=== PATIENT | female | born 1970 | race Caucasian/White ===

== ENCOUNTER → 2024-02-03 09:05 | Outpatient (REF) | payer OTHER, SELFPAY | LOC: HWWDC 09:05 | PROVIDERS: ATTENDING PHYSICIAN Nurse Practitioner Adult Health | DX: Z12.31 Encounter for screening mammogram for malignant neoplasm of breast (principal) | CPT/HCPCS: 77063; 77067 ==

== ENCOUNTER → 2024-05-04 15:45 | Outpatient (REF) | payer OTHER, SELFPAY | LOC: RCS 15:45 | PROVIDERS: ATTENDING PHYSICIAN Specialist; FAMILY PHYSICIAN Nurse Practitioner Adult Health | DX: Z01.818 Encounter for other preprocedural examination (principal) | CPT/HCPCS: 93005 ==

== ENCOUNTER → 2024-05-12 13:57 | Outpatient (REF) | payer OTHER, SELFPAY | LOC: HWRAD 13:57 | PROVIDERS: ATTENDING PHYSICIAN Physician Assistant; FAMILY PHYSICIAN Nurse Practitioner Adult Health | DX: E11.641 Type 2 diabetes mellitus with hypoglycemia with coma (principal); R73.9 Hyperglycemia, unspecified | CPT/HCPCS: 74170; Q9967 ==

== ENCOUNTER → 2024-06-14 14:50 | Outpatient (REF) | payer OTHER, SELFPAY | LOC: RCS 14:50 | PROVIDERS: ATTENDING PHYSICIAN Nurse Practitioner Adult Health | DX: I10 Essential (primary) hypertension (principal); I51.7 Cardiomegaly | CPT/HCPCS: 93306 ==

== ENCOUNTER 2025-07-03 06:06 | Day surgery (SDC) | payer OTHER, SELFPAY ==
[2025-06-28 10:12] LABS: Hematocrit 40.2 % (37.0-47.0); Hemoglobin 14.0 g/dL (12.0-16.0); Mean Corp Hgb Conc. 34.8 g/dL (33.0-37.0); Mean Corpuscular Volume 81.7 fL (81.0-99.0); Platelet Count 281 10^3/uL (130-400); Red Cell Dist. Width 12.5 % (11.5-14.5)
[2025-06-28 10:40] LABS: Blood Urea Nitrogen 20 mg/dl (7-17); Calcium 9.3 mg/dl (8.4-10.2); Carbon Dioxide 29 mmol/L (22-30); Chloride 106 mmol/L (98-107); Glucose 100 mg/dl (70-99); Potassium 3.9 mmol/L (3.5-5.1); Sodium 141 mmol/L (135-145); eGFR > 60.00
[2025-06-28 14:19] VITALS: BMI 28.8
[2025-07-03] VITALS (13 sets, daily range): BP systolic 111–144; BP diastolic 56–80; BMI 28.8; BMI 30.9
[2025-07-03] MEDS: NORMOSOL-R/PLASMALYTE-A 1000 IV (12:21)
[2025-07-03 12:24] LABS: Glucose - Point of Care 96 mg/dl (70-99)
[2025-07-03] MEDS: TYLENOL 1000 MG PO (12:30)
[2025-07-03] MEDS: CELEBREX 200 MG PO (12:31)
[2025-07-03 16:57] LABS: Glucose - Point of Care 130 mg/dl (70-99)
[2025-07-03] MEDS: DILAUDID 0.5 MG IV ×2 (17:26→17:41)
[2025-07-03 17:31] LABS: Glucose - Point of Care 155 mg/dl (70-99)
[2025-07-03] MEDS: DILAUDID 0.25 MG IV ×2 (17:56→19:17)
--- NOTE | 2025-07-03 18:53 | HPS.HSE ---
Addendum entered and electronically signed by Lionel Duffy MD 07/03/25 21:11:
This is an addendum to the H&P written by Bindu Zayas on 07/03/2025. �Patient seen and examined independently with [facility].
54-year-old female past medical history of hypertension, hyperlipidemia, type 2 diabetes, depression, insomnia, underwent right osteotomy of the calcaneus and tarsal bone for tibial tendon dysfunction.
Nonweightbearing on left lower extremity. �PT OT. �Pain control with Tylenol, oxycodone, Dilaudid.
Hold Lantus tonight. �Insulin sliding scale.
Original Note:
Family Physician
-
Family Physician: Avelina Miller
Chief Complaint
-
Right foot posterior tibial tendon dysfunction
History of Present Illness
54-year-old female status post right osteotomy calcaneus and tarsal bone due to posterior tibial tendon dysfunction currently in the PACU is awake alert oriented x 3. She did have nerve block to her right ankle which is currently wearing off she is
having some pain to her ankle and toes. She is in a posterior OCL splint toes are pink warm with good sensation +2 cap refill. Patient denies fever, chills, chest pain, palpitations, cough, shortness breath, abdominal pain, nausea, vomiting,
diarrhea, urinary symptoms.
She has past medical history right posterior tibial tendon dysfunction, HLD, HTN, depression, DM 2, insomnia.
Medical History
Past Medical History
Past Medical History: Reports Other
Additional Past Medical History:
Hypertension
Hyperlipidemia
DM 2
Depression
Insomnia
Posterior tibial tendon dysfunction right foot
Past Surgical History: Reports Other
Additional Past Surgical History:
section x 3
D&C
Gastric sleeve 2015
Left knee meniscus repair April 2024
Social History
Tobacco: Non-smoker
Alcohol: None
Drug: None
Personal:
Living: With Family (With )
Employment: Employed
Family History
Family History: Not pertinent
Allergies / Home Medications
Allergies reflects when Allergies were last updated in [facility].
Home Medications with original date entered in [facility]
Allergy/Medication List:
Allergies
Allergy/AdvReac Type Severity Reaction Status Date / Time
clarithromycin Allergy Patient Verified 07/03/25 12:18
Denies
erythromycin base Allergy Patient Verified 07/03/25 12:18
Denies
Home Medications
amlodipine 10 mg tablet 10 mg PO HS 06/26/25
bupropion HCl 150 mg 24 hr tablet, extended release (Wellbutrin XL) 150 mg PO HS 06/26/25
bupropion HCl 75 mg tablet 75 mg PO HS 06/26/25
chlorthalidone 25 mg tablet 25 mg PO DAILY 06/26/25
insulin glargine 100 unit/mL subcutaneous solution (Lantus U-100 Insulin) 15 unit SC HS 06/26/25
rosuvastatin 40 mg tablet (Crestor) 40 mg PO DAILY 06/26/25
tirzepatide 5 mg/0.5 mL subcutaneous pen injector (Mounjaro) 5 mg SC MO 06/26/25
trazodone 50 mg tablet 50 - 100 mg PO HS PRN insomnia 06/26/25
Review of Systems
-
History Source: Patient and Family ( at bedside)
A 12 point ROS was completed and negative except as noted: Yes
Constitutional: Denies Fever or Chills
EENT: Denies Sore Throat
Respiratory: Denies Cough or Trouble Breathing
Cardiac: Denies Chest Pain, Diaphoresis or Palpitations
Abdomen/GI: Denies Abdominal Pain, Nausea, Vomiting or Diarrhea
: Denies Dysuria, Frequency, Flank Pain or Incontinence
Musculoskeletal: Reports Joint Pain (Right ankle postop) and Other (Posterior OCL in place with distal dorsal foot and toes exposed pink, warm, sensation intact, +2 cap refill)
Skin: Denies Itching or Rash
Neurological: Denies Dizzy or Headache
Endocrine: Reports No Symptoms
Hematologic/Lymphatic: Reports No Symptoms
Psych: Reports Calm
Physical Exam
Vital Signs
Vital Signs
Temp Pulse Resp BP Pulse Ox
97.1 F 97 14 116/56 96
07/03/25 17:17 07/03/25 18:45 07/03/25 18:45 07/03/25 18:45 07/03/25 18:45
Physical Exam
General: Pain; No Fever or Chills
HEENT: NormoCephalic, Anicteric, Moist mucous membranes, PERRLA, [place] Conjunctivae and No Ptosis
Respiratory: Clear; No Wheezes, Rales or Rhonchi
Cardiac: S1/S2 and Regular Rhythm; No Murmur, Rub, Gallop or Peripheral Edema
GI: Soft, Non Tender, Non Distended and Normal Bowel Sounds
Rectal: Deferred by Provider
Genito-urinary: Deferred by me
Musculoskeletal: No Clubbing, No Cyanosis, No Edema and Other (Posterior OCL in place with distal dorsal foot and toes exposed pink, warm, sensation intact, +2 cap refill)
Skin: Warm and Dry; No Rash or Jaundice
Neuro: AO x 3, Nonfocal/grossly intact, Cranial Nerves Intact and No Sensory Deficits; No Slurred Speech, Facial Droop, Tremors or Sedated
Psych: Calm
Laboratory Results
-
06/28/25 08:58
06/28/25 08:58
Data Reviewed
-
Lab Data: Labs Reviewed by me
Impression/Plan
-
Impression/plan:
Admit to MedSurg postop
Postop right osteotomy calcaneus and tarsal bone due to posterior tibial tendon dysfunction
- Patient being followed by Dr. Jama
- Tylenol, oxycodone, IV Dilaudid
- IV Zofran as needed pain
- IV NSS
-Weightbearing per podiatry Dr. Jama
- Consult PT/OT/case management
#DM2
Accu-Cheks with SSI low, check HgbA1c
- Hold Mounjaro, Lantus 15 units at bedtime
#HTN
BP 123/68
-Continue amlodipine 10 mg at bedtime
#HLD
Continue Crestor 40 mg daily
Depression
Continue Wellbutrin at bedtime
Insomnia
Continue trazodone 50 mg at bedtime
DVT prophylaxis
SCDs to left leg
Full code
[2025-07-03 19:56] LABS: Glucose - Point of Care 134 mg/dl (70-99)
[2025-07-03] MEDS: NORMOSOL-R/PLASMALYTE-A IV (20:33)
--- NOTE | 2025-07-03 21:06 | W.PN.UPDATE ---
Update Note
Progress Note Update
54 F s/p Right flat foot reconstruction (oliver, kenneth, wilfrido, edwin, chris). Patient having pain after peripheral nerve block 'wore off' otherwise, NAD.
- strict NWB RLE
- PT/OT
- ancef 2g 24 hrs post op, not a barrier to discharge
- resume diet
- postop analgesia
- will reassess on AM rounds
[2025-07-03] MEDS: DILAUDID 1 MG IV (21:10)
[2025-07-03] MEDS: WELLBUTRIN REGULAR RELEASE 75 MG PO (21:21)
[2025-07-03] MEDS: WELLBUTRIN XL (24 hour extended release) 150 MG PO (21:21)
[2025-07-03] MEDS: NORVASC 10 MG PO (21:23)
[2025-07-03] MEDS: TYLENOL 650 MG PO (21:24)
--- NOTE | 2025-07-03 22:00 | PTCARENOTE ---
Rec'd patient from PACU. stable vitals. Moderate pain to Right lower leg. Right leg dressing CDI. POC reviewed with patient .
[2025-07-03] MEDS: ANCEF 10 IV (22:37)
[2025-07-04 00:10] LABS: Glucose - Point of Care 251 mg/dl (70-99)
[2025-07-04] MEDS: NORMOSOL-R/PLASMALYTE-A 1000 IV (00:34)
[2025-07-04] MEDS: ROXICODONE 5 MG PO ×3 (00:45→09:12)
[2025-07-04 03:00] VITALS: BP 123/68
[2025-07-04] MEDS: TYLENOL 650 MG PO (05:00)
[2025-07-04] MEDS: ANCEF 10 IV ×2 (05:01→14:25)
[2025-07-04 06:50] LABS: Hematocrit 36.5 % (37.0-47.0); Hemoglobin 12.9 g/dL (12.0-16.0); Mean Corp Hgb Conc. 35.3 g/dL (33.0-37.0); Mean Corpuscular Volume 83.5 fL (81.0-99.0); Nucleated Red Blood Cells % 0 %; Platelet Count 274 10^3/uL (130-400); Red Cell Dist. Width 12.3 % (11.5-14.5)
[2025-07-04 07:12] LABS: ALT (SGPT) 18 U/L (0-35); AST (SGOT) 19 U/L (14-36); Albumin 3.8 g/dl (3.5-5.0); Alkaline Phosphatase 73 U/L (38-126); Blood Urea Nitrogen 19 mg/dl (7-17); Calcium 8.8 mg/dl (8.4-10.2); Carbon Dioxide 26 mmol/L (22-30); Chloride 107 mmol/L (98-107); Estimated Creatinine Clearance 108 ml/min; Glucose 103 mg/dl (70-99); Potassium 3.7 mmol/L (3.5-5.1); Sodium 139 mmol/L (135-145); Total Protein 6.0 g/dl (6.3-8.2); eGFR > 60.00
[2025-07-04 07:55] VITALS: BP 119/66
[2025-07-04 08:03] LABS: Glucose - Point of Care 136 mg/dl (70-99)
--- NOTE | 2025-07-04 08:37 | W.PN.UPDATE ---
Update Note
Progress Note Update
54 F s/p Right flat foot reconstruction (oliver, kenneth, wilfrido, edwin, chris). Patient doing well this AM, feeling more ready to go home. CFT wnl, sensation intact to pedal distributions, gross motor function intact. calves soft supple
nontender to touch.
- strict NWB RLE
- PT/OT
- ancef 2g 24 hrs post op, not a barrier to discharge
- resume diet
- postop analgesia
- patient may follow up in office for routine post op care.
[2025-07-04] MEDS: CRESTOR 40 MG PO (09:05)
--- NOTE | 2025-07-04 09:07 | W.PN.HOSP.TC ---
Today's Communication/Plan
-
Discharge today
Assessment / Plan
Assessment / Plan
Physical Exam
General: Not in acute distress
HEENT: Normocephalic, Moist mucous membranes
Respiratory: Clear to Auscultation Bilaterally
Cardiac: S1/S2 and Regular Rhythm
GI: Soft, Non Tender, Non Distended and Normal Bowel Sounds
Musculoskeletal: No Cyanosis, RLE covered in dressing and JORGE wrap.
Skin: Warm and Dry
Neuro: AO x 3, Nonfocal/grossly intact, Cranial Nerves Intact and No Sensory Deficits
Psych: Calm
Assessment/Plan
54-year-old female with past medical history of hypertension, hyperlipidemia, type 2 diabetes, depression, insomnia, underwent right osteotomy of the calcaneus and tarsal bone for tibial tendon dysfunction. Nonweightbearing on left lower extremity.
PT OT. Pain control with Tylenol, oxycodone, Dilaudid.
Postop right osteotomy calcaneus and tarsal bone due to posterior tibial tendon dysfunction (right flat foot reconstruction (gastroc, kouts, anna, cotton, kinder))
- Patient being followed by Dr. Jama
- Strict NWB of the RLE
- Consult PT/OT/case management
- Follow-up outpatient with Dr. Farfan and Dr. Jama
Type 2 Diabetes Mellitus
- Patient has not needed Sliding Scale Insulin here
- HgbA1c is 5.3%
- Take reduced Lantus dose at bedtime, e.g. 4 units and then increase as necessary
- Talk with outpatient primary care provider regarding when to resume Mounjaro
Hypertension
-Continue amlodipine 10 mg at bedtime
Hyperlipidemia
-Continue Crestor 40 mg daily
Depression
-Continue Wellbutrin at bedtime
Insomnia
-Continue trazodone 50 mg at bedtime
DVT prophylaxis
SCDs to left leg. Lovenox.
Full code
More than 30 minutes spent in discharge including
Final examination of the patient
Summarizing hospital stay
Instructions for continuing care to all relevant caregivers
Preparation of discharge records, prescriptions, and referral forms
Total time spent (in minutes): 41
Anticipated Discharge: Today
Subjective/Interval History
-
Date of Service: July 04, 2025
Patient was seen and examined. She denied any complaints. She did have some nausea/vomiting earlier which resolved.
Objective Data
-
Labs:
Laboratory Results
07/04/25
05:53
WBC 12.5 H
Hgb 12.9
Hct 36.5 L
Plt Count 274
Sodium 139
Potassium 3.7
Chloride 107
Carbon Dioxide 26
BUN 19 H
Creatinine 0.6
Glucose 103 H
Calcium 8.8
Total Bilirubin 0.4
AST 19
ALT 18
Alkaline Phosphatase 73
Vital Signs:
Vital Signs
Temp Pulse Resp BP Pulse Ox
98.0 F 85 18 119/66 98
07/04/25 07:55 07/04/25 07:55 07/04/25 07:55 07/04/25 07:55 07/04/25 07:55
I&O
07/03/25 07/04/25 07/05/25
06:59 06:59 06:59
Intake Total 880 / 880
Balance 880 / 880
--- NOTE | 2025-07-04 09:45 | CM ---
Cm reviewed medical records. Patient confirmed demographics. Patient is enthusiastic for discharge. Patient lives independently with . Patient does not have a history of VN or SNF. Patient is active with her PCP. Patient has medication
coverage.
PLAN: Home, pending PT/OT recommendations.
[2025-07-04 09:59] LABS: Glycohemoglobin (HgbA1c) 5.3 % (4.0-5.6)
--- NOTE | 2025-07-04 10:43 | PTCARENOTE ---
Pt c/o moderate pain this morning and asked for Oxycodone. This nurse offered Pt some applesauce to take w/ medication. Applesauce was declined. Pt just reported to this nurse that she vomited x2 within the last hour. Pt also reporting the pain in
her right foot is now severe. Will medicate for nausea and give Dilaudid IV as ordered for pain.
[2025-07-04] MEDS: ZOFRAN 4 MG IV (10:49)
[2025-07-04] MEDS: DILAUDID 1 MG IV ×2 (10:50→15:56)
[2025-07-04 11:05] VITALS: BP 124/79
[2025-07-04] MEDS: NORMOSOL-R/PLASMALYTE-A IV (14:26)
[2025-07-04 15:03] VITALS: BP 130/72; PULSE 82; O2SAT 98
[2025-07-04 15:07] VITALS: BP 130/72; PULSE 84; O2SAT 98
[2025-07-04 15:10] VITALS: BP 128/66
--- NOTE | 2025-07-04 15:24 | CM ---
Addendum entered by Carmela Bobo RN 07/04/25 16:24:
Patient has been accepted by [facility]. (
PLAN: [facility].
Addendum entered by Carmela Bobo RN 07/04/25 16:14:
[facility], and [facility] are unable to accept. CM sent referral via [facility] to [facility]. CM updated patient with discharge planning barriers. CM will continue to follow and await [facility] to accept.
[facility] has declined.
PLAN: Pending Home care acceptance.
Original Note:
Patient is medically ready for discharge. CM issued a walker from ER supply closet as patient's insurance is not in network with the PT consignment closet. Patient was further advised to purchase a commode from [facility].
CM referred patient to [facility].
PLAN: Home with VN.
[2025-07-04 16:58] LABS: Glucose - Point of Care 166 mg/dl (70-99)
== END 2025-07-04 18:05 | disposition home health service (06) ==
LOC: SDS 06:06
PROVIDERS: Clinical Nurse Specialist Family Health; ATTENDING PHYSICIAN Hospitalist; CONSULT PHYSICIAN Student in an Organized Health Care Education/Training Program; FAMILY PHYSICIAN Nurse Practitioner Adult Health
DX: M21.41 Flat foot [pes planus] (acquired), right foot (principal); M62.461 Contracture of muscle, right lower leg; M76.821 Posterior tibial tendinitis, right leg; I10 Essential (primary) hypertension; E11.9 Type 2 diabetes mellitus without complications; Z79.4 Long term (current) use of insulin; Z79.899 Other long term (current) drug therapy
CPT/HCPCS: 28300; 28238; 27687; 28304; C1713; 36415; 73630; 76000; 80048; 80053; 82962; 83036; 85025; 85027; 97116; 97162; 97166; 97535